=== PATIENT | female | born 1995 | race Caucasian/White ===

== ENCOUNTER → 2018-06-09 20:18 | Observation (INO) ==
[2018-06-09 18:29] LABS: Bilirubin,Urine Negative (Negative); Blood,Urine Negative (Negative); Clarity,Urine Turbid (Clear); Color,Urine Yellow (Yellow); Glucose,Urine (UA) 100 mg/dL (Normal); Ketones,Urine Negative (Negative); Leukocyte Esterase,Urine Small (Negative); Nitrite,Urine Negative (Negative); PH,Urine 7.5 pH Units (5.0-8.0); Protein,Urine Trace mg/dL (Neg-Trace); Specific Gravity,Urine 1.027 (1.010-1.025); Urobilinogen,Urine Normal (Normal)
[2018-06-09 18:32] LABS: Bacteria,Urine Moderate per hpf (None-Few); Hyaline Casts,Urine None Seen per lpf (None-Few); Squamous Epithelial Cell,Urine Many per lpf (None-Few)
[2018-06-09 18:40] LABS: Amphetamine Screen,Urine Negative ng/mL (Cutoff=1000); Barbiturate Screen,Urine Negative ng/mL (Cutoff=200); Benzodiazepines Screen,Urine Negative ng/mL (Cutoff=200); Cannabinoid Screen,Urine Negative ng/mL (Cutoff = 50); Cocaine Screen,Urine Negative ng/mL (Cutoff= 300); Opiate Screen,Urine Negative ng/mL (Cutoff=300); Phencyclidine Screen,Urine Negative ng/mL (Cutoff=25)
[2018-06-09 18:44] LABS: Amorphous Sediment,Urine Moderate (Few)
--- NOTE | 2018-06-09 18:46 | OB/GYN Progress Note ---
Date of Encounter: 06/09/18 Time of Encounter: 18:44 - Assessment and Plan (1) 22 weeks gestation of Current Visit: Yes Status: Acute (2) Cramping affecting , antepartum Current Visit: Yes Status: Acute 1 L LR bolus. Pt states cramping has lessened and contractions have decreased on the monitor. discharged home with labor and when to return to triage precautions. Discussed with Dr. Benjamin. Subjective - Subjective Interval history: 22+1 presents to triage with complaints of cramping since yesterday. Reports movement, but is decreased over the last couple days. Denies vaginal bleeding or leaking of fluid. Pt states she has only had 3 cans of pepsi today, no water, and only drinks minimal water daily. Antepartum ROS: contractions, no loss of fluid, no vaginal bleeding, no movement normal Objective - Vital Signs Vital Signs: Intake and Output 06/09/18 06/09/18 06/09/18 07:59 15:59 23:59 Other: Weight 44.906 kg Patient Weight 06/09/18 23:59 Weight 44.906 kg - Exam FHR: auscultation normal Abdomen: Present: soft, gravid Cervical dilation: Closed internal OS, external 1cm/long/high - Labs Labs: Abnormal lab results Urine Clarity Turbid (Clear) A 06/09/18 18:00 Ur Specific [place] 1.027 (1.010-1.025) H 06/09/18 18:00 Urine Glucose (UA) 100 mg/dL (Normal) H 06/09/18 18:00 Ur Leukocyte Esterase Small (Negative) H 06/09/18 18:00
[~2018-06-09 20:18] MED LIST: Ringers Solution, Lactated 1,000 ML IVC ONE; Ringers Solution, Lactated 1,000 ML IVC SCH; Ringers Solution, Lactated 1,000 ML ONE
== END | disposition home or self-care (01) ==
LOC: 1NENULAB
PROVIDERS: ADMIT Advanced Practice Midwife; ATTEND Advanced Practice Midwife

== ENCOUNTER → 2018-07-13 17:05 | Observation (INO) ==
[2018-07-13 16:31] LABS: Bilirubin,Urine Negative (Negative); Blood,Urine Small (Negative); Clarity,Urine Cloudy (Clear); Color,Urine Yellow (Yellow); Glucose,Urine (UA) Normal (Normal); Ketones,Urine Trace mg/dL (Negative); Leukocyte Esterase,Urine Small (Negative); Nitrite,Urine Negative (Negative); PH,Urine 7.5 pH Units (5.0-8.0); Protein,Urine Negative (Neg-Trace); Specific Gravity,Urine 1.015 (1.010-1.025); Urobilinogen,Urine Normal (Normal)
[2018-07-13 16:37] LABS: Amphetamine Screen,Urine Negative ng/mL (Cutoff=1000); Bacteria,Urine Moderate per hpf (None-Few); Barbiturate Screen,Urine Negative ng/mL (Cutoff=200); Benzodiazepines Screen,Urine Negative ng/mL (Cutoff=200); Cannabinoid Screen,Urine Negative ng/mL (Cutoff = 50); Cocaine Screen,Urine Negative ng/mL (Cutoff= 300); Hyaline Casts,Urine None Seen per lpf (None-Few); Opiate Screen,Urine Negative ng/mL (Cutoff=300); Phencyclidine Screen,Urine Negative ng/mL (Cutoff=25); Squamous Epithelial Cell,Urine Many per lpf (None-Few)
--- NOTE | 2018-07-13 17:01 | OB/GYN Progress Note ---
Date of Encounter: 07/13/18 Time of Encounter: 16:59 - Assessment and Plan (1) 27 weeks gestation of Current Visit: Yes Status: Acute Discharge home with precautions. (2) Suprapubic pressure Current Visit: Yes Status: Acute (3) Lightheadedness Current Visit: Yes Status: Acute Encouraged oral hydration. Return precautions given. Subjective - Subjective Principal diagnosis: Suprapubic pressure Interval history: 22 y/o presenting at 27w0d with c/o of suprapubic pressure that she has had for a few days. She also reports a feeling of lightheadness around 1130 today. Reports she had not eaten or had water to drink for a few hours. Reports after food and water, it had resolved. Denies LOF, Contractions, VB. Reports good FM. Antepartum ROS: new complaints, movement normal, no loss of fluid, no vaginal bleeding, no contractions Objective - Vital Signs Vital Signs: Intake and Output 07/13/18 07/13/18 07/13/18 07:59 15:59 23:59 Other: Weight 48.8 kg Patient Weight 07/13/18 23:59 Weight 48.8 kg - Exam FHR: category 1 FHR comments: FHR baseline 150bpm, reassuring for gestation age. Auscultation: bilateral: normal Abdomen: Present: normal appearance, soft, gravid. Absent: tenderness Cervical dilation: 0 Cervix effacement: thick - Labs Labs: Abnormal lab results Urine Clarity Cloudy (Clear) A 07/13/18 16:22 Urine Ketones Trace mg/dL (Negative) H 07/13/18 16:22 Urine Blood Small (Negative) H 07/13/18 16:22 Ur Leukocyte Esterase Small (Negative) H 07/13/18 16:22 Urine Microscopic RBC 3-5 per hpf (0-3) H 07/13/18 16:22 Urine Microscopic WBC 3-5 per hpf (0-3) H 07/13/18 16:22 Ur Squamous Epith Cells Many per lpf (None-Few) H 07/13/18 16:22 Urine Bacteria Moderate per hpf (None-Few) H 07/13/18 16:22 Ur Culture Indicated? NO. (NO) A 07/13/18 16:22
== END | disposition home or self-care (01) ==
LOC: 1NENULAB
PROVIDERS: ADMIT Registered Nurse; ATTEND Registered Nurse

== ENCOUNTER → 2018-08-05 19:35 | Observation (INO) ==
[2018-08-05 15:07] LABS: Bilirubin,Urine Negative (Negative); Blood,Urine Small (Negative); Clarity,Urine Cloudy (Clear); Color,Urine Dark Yellow (Yellow); Glucose,Urine (UA) Normal (Normal); Ketones,Urine 40 mg/dL (Negative); Leukocyte Esterase,Urine Small (Negative); Nitrite,Urine Negative (Negative); PH,Urine 6.5 pH Units (5.0-8.0); Protein,Urine Negative (Neg-Trace); Specific Gravity,Urine 1.016 (1.010-1.025); Urobilinogen,Urine Normal (Normal)
[2018-08-05 15:11] LABS: Bacteria,Urine Moderate per hpf (None-Few); Squamous Epithelial Cell,Urine Many per lpf (None-Few); WBC,Urine 30-50 per hpf (0-3)
[2018-08-05 15:23] LABS: Renal Epithelial Cells,Urine Few per hpf (None-Few)
[2018-08-05 15:35] LABS: Amphetamine Screen,Urine Negative ng/mL (Cutoff=1000); Barbiturate Screen,Urine Negative ng/mL (Cutoff=200); Benzodiazepines Screen,Urine Negative ng/mL (Cutoff=200); Cannabinoid Screen,Urine Negative ng/mL (Cutoff = 50); Cocaine Screen,Urine Negative ng/mL (Cutoff= 300); Opiate Screen,Urine Negative ng/mL (Cutoff=300); Phencyclidine Screen,Urine Negative ng/mL (Cutoff=25)
--- NOTE | 2018-08-05 15:35 | OB/GYN History & Physical ---
Date of Encounter: 08/05/18 Time of Encounter: 15:29 Assessment and Plan (1) 30 weeks gestation of Current visit: Yes Status: Acute NST reactive, FHR 140 bpm. Fibronectin negative. Fern negative. Vaginosis panel and GC/CT pending. (2) labor Current visit: Yes Status: Acute Dr. Ritter at bedside for US of placenta. Contractions every minute. SVE unchanged after 1 hour. FFN negative. Contractions have continued despite fluid bolus and procardia. Magnesium 4g loading dose followed by 2 grams per hour per Dr. Ritter's orders. Fibrinogen pending. Qualifiers: labor trimester: third trimester Fetus number: single or unspecified fetus Qualified Code(s): O60.14X0 - labor third trimester with delivery third trimester, not applicable or unspecified (3) Tachycardia with heart rate 141-160 beats per minute Current visit: Yes Status: Acute 2 liters of LR given. Continuous pulse ox in place to monitor heart rate. Dr. Ritter aware. History of Present Illness Chief complaint: cramping, nausea HPI: Ms. Garvey is a 23 year old female presenting at 30w2d with c/o cramping, pressure, and nausea. She reports feeling a pop 2 days ago. Denies VB or LOF. Reports good movement. Pt reports nausea began yesterday, but denies vomiting. Reports she "has barely drank any water for days". Denies diarrhea. Denies intercourse x1 week or any falls during this . Denies h/o anxiety or depression prior to this , but has had some anxiety the last few weeks of this . Pt's Mother at and reports that the patient had Afib when she was 13 y/o and was treated for 6 months with medication. Past Med Surg Social Fam HX - Past Medical History Medical history: no medical history Additional medical history: pt states irregular heart rhythm as child, endometriosis Psychiatric history: no psych history - Past Surgical History Additional surgical history: Wrist sx; sx for endometrosis - Social History Smoking Status: Never smoker Smokeless Tobacco Status: No Alcohol use: none Drug use: none - Family History Mother Living Status: Still Living Hx Family Cardiac Disorders: Yes (CHF, Pacemaker, Defiberlator x2, htn) Hx Family Respiratory Disorders: No Hx Family Cancer: No Hx Family GI Disorders: No Hx Family Endocrine Disorder: No Hx Family Neuromuscular Disorders: No Hx Family Neurologic Disorders: No Hx Family HEENT Disorders: No Hx Family Autoimmune Disorders: No Obstetrical History - Pregnancies : 1 Para: 0 Medications and Allergies Tablet 1 tab PO DAILY 06/09/18 [History] Allergy/AdvReac Type Severity Reaction Status Date / Time No Known Allergies Allergy Verified 02/22/18 19:04 Review of System OB All systems PM: reviewed and no additional remarkable complaints except as s tated - Gastrointestinal Gastrointestinal: nausea, no diarrhea, no vomiting - Genitourinary Genitourinary: no dysuria, no vaginal discharge - Psychiatric Psychiatric: anxiety, no depression, no suicidal ideation (Denies anxiety prior to , but reports it began a few weeks ago. ) Exam - Constitutional Constitutional: mild distress, thin - Lungs Respiratory exam: CTAB - Cardiovascular Cardiovascular exam: RRR, +S1, +S2 - Abdomen Abdomen: Present: bowel sounds normal, gravid, non tender - Extremities Extremities exam: normal inspection Deep Tendon Reflex Grade: 2+ Normal - Cervix Dilation: 1 (1.5cm ) Effacement: 50 Station: -2 Results Result Diagrams: 08/05/18 15:20 08/05/18 15:20 Abnormal lab results Urine Clarity Cloudy (Clear) A 08/05/18 14:55 Urine Ketones 40 mg/dL (Negative) H 08/05/18 14:55 Urine Blood Small (Negative) H 08/05/18 14:55 Ur Leukocyte Esterase Small (Negative) H 08/05/18 14:55 Urine Microscopic RBC 5-15 per hpf (0-3) H 08/05/18 14:55 Urine Microscopic WBC 30-50 per hpf (0-3) H 08/05/18 14:55 Ur Squamous Epith Cells Many per lpf (None-Few) H 08/05/18 14:55 Urine Bacteria Moderate per hpf (None-Few) H 08/05/18 14:55 Ur Culture Indicated? NO. (NO) A 08/05/18 14:55 All other labs normal. - VTE Reasons for not Prescribing Prophylaxis: Treatment not Indicated - Low risk for VTE
[2018-08-05 15:46] LABS: Basophils # 0.1 K/mcL (0.0-0.2); Basophils % 0.3 %; Eosinophils # 0.4 K/mcL (0.0-0.6); Eosinophils % 2.5 %; Hemoglobin 11.4 g/dL (11.5-15.4); Immature Granulocytes % 0.4 % (0-4); Lymphocytes # 2.7 K/mcL (0.6-4.6); Lymphocytes % 18.2 %; Mean Corpuscular HGB Conc 33.5 g/dL (31.6-35.5); Mean Corpuscular Hemoglobin 30.5 pg (28.0-33.3); Mean Corpuscular Volume 90.9 fL (83.0-100.0); Mean Platelet Volume 11.2 fL (9.4-12.4); Monocytes # 1.2 K/mcL (0.0-1.3); Monocytes % 7.8 %; Neutrophils # 10.4 K/mcL (1.6-8.9); Platelet Count 289 K/mcL (140-400); Red Blood Count 3.74 M/mcL (3.82-4.97); Red Cell Distribution Width 12.7 % (11.5-14.5); Segmented Neutrophils % 70.8 %
[2018-08-05 16:04] LABS: BUN/Creatinine Ratio 9 (6-26); Blood Urea Nitrogen 3 mg/dL (6-20); Calcium 9.4 mg/dL (8.6-10.3); Carbon Dioxide 23 mEq/L (23-29); Chloride 100 mEq/L (98-107); Glucose 91 mg/dL (70-105); Osmolality,Calculated 276 (280-300); Potassium 3.4 mEq/L (3.5-5.1); Sodium 135 mEq/L (136-145); eGFR For Non-African Americans > 60 (> 60)
[2018-08-05 16:34] LABS: Gardnerella DNA Not Detected (Not Detect); Trichomonas DNA Not Detected (Not Detect)
[2018-08-05 16:35] LABS: Candida DNA Not Detected (Not Detect)
--- NOTE | 2018-08-05 18:41 | OB/GYN Progress Note ---
Date of Encounter: 08/05/18 Time of Encounter: 17:00 - Assessment and Plan (1) 30 weeks gestation of Current Visit: Yes Status: Acute (2) labor Current Visit: Yes Status: Acute We will give patient 4 g loading dose and 2 g an hour betamethasone given will try to get contractions back under control and stopped possible transfer to [facility]. Qualifiers: labor trimester: third trimester Fetus number: single or unspecified fetus Qualified Code(s): O60.14X0 - labor third trimester with delivery third trimester, not applicable or unspecified Subjective - Subjective Interval history: Patient states contractions getting more uncomfortable abdomen getting very tight. Patient's strip is becoming tachysystole questioned her about any abdominal trauma any drugs tonight everything. Magnesium sulfate is being started at this time. Objective - Exam FHR: category 2 FHR comments: heart tones 160s contractions every 1 minute showing signs of tachysystole Abdomen: Present: gravid (firm to palpation), other (Bedside ultrasound performed revealing fetus in vertex presentation active movement noted anterior placenta seen there appeared to be no signs of any retroplacental clot appeared to be intact.) Cervical dilation: 1.5 Cervix effacement: 50 station: -3 - Labs Labs: Abnormal lab results WBC 14.7 K/mcL (4.3-11.1) H 08/05/18 15:20 RBC 3.74 M/mcL (3.82-4.97) L 08/05/18 15:20 Hgb 11.4 g/dL (11.5-15.4) L 08/05/18 15:20 Hct 34.0 % (35.3-44.9) L 08/05/18 15:20 Neutrophils # 10.4 K/mcL (1.6-8.9) H 08/05/18 15:20 Fibrinogen 446 mg/dL (169-393) H 08/05/18 16:55 Sodium 135 mEq/L (136-145) L 08/05/18 15:20 Potassium 3.4 mEq/L (3.5-5.1) L 08/05/18 15:20 BUN 3 mg/dL (6-20) L 08/05/18 15:20 Creatinine 0.32 mg/dL (0.60-1.20) L 08/05/18 15:20 Calculated Osmolality 276 (280-300) L 08/05/18 15:20 Urine Clarity Cloudy (Clear) A 08/05/18 14:55 Urine Ketones 40 mg/dL (Negative) H 08/05/18 14:55 Urine Blood Small (Negative) H 08/05/18 14:55 Ur Leukocyte Esterase Small (Negative) H 08/05/18 14:55 Urine Microscopic RBC 5-15 per hpf (0-3) H 08/05/18 14:55 Urine Microscopic WBC 30-50 per hpf (0-3) H 08/05/18 14:55 Ur Squamous Epith Cells Many per lpf (None-Few) H 08/05/18 14:55 Urine Bacteria Moderate per hpf (None-Few) H 08/05/18 14:55 Ur Culture Indicated? NO. (NO) A 08/05/18 14:55
--- NOTE | 2018-08-05 19:11 | Discharge Summary ---
Date of Encounter: 08/05/18 Time of Encounter: 19:14 - Discharge Diagnosis (1) 30 weeks gestation of Priority: Primary Status: Acute (2) labor Priority: Primary Status: Acute Comments: We will transfer patient to [facility] Qualifiers: labor trimester: third trimester Fetus number: single or unspecified fetus Qualified Code(s): O60.14X0 - labor third trimester with delivery third trimester, not applicable or unspecified - Discharge Medications Home Medications: Tablet 1 tab PO DAILY 06/09/18 [History] Allergies/Adverse Reactions: Allergy/AdvReac Type Severity Reaction Status Date / Time No Known Allergies Allergy Verified 02/22/18 19:04 Data Procedures and tests throughout hospitalization: Laboratory Tests 08/05/18 08/05/18 08/05/18 14:55 14:55 15:20 WBC 14.7 H RBC 3.74 L Hgb 11.4 L Hct 34.0 L MCV 90.9 MCH 30.5 MCHC 33.5 RDW 12.7 Plt Count 289 MPV 11.2 Immature Gran % 0.4 Seg Neutrophils % 70.8 Lymphocytes % 18.2 Monocytes % 7.8 Eosinophils % 2.5 Basophils % 0.3 Neutrophils # 10.4 H Lymphocytes # 2.7 Monocytes # 1.2 Eosinophils # 0.4 Basophils # 0.1 Fibrinogen Sodium Potassium Chloride Carbon Dioxide BUN Creatinine Est GFR ( Amer) Est GFR (Non-Af Amer) BUN/Creatinine Ratio Glucose Calculated Osmolality Calcium Urine Color Dark Yellow Urine Clarity Cloudy A Urine pH 6.5 Ur Specific [place] 1.016 Urine Protein Negative Urine Glucose (UA) Normal Urine Ketones 40 H Urine Blood Small H Urine Nitrite Negative Urine Bilirubin Negative Urine Urobilinogen Normal Ur Leukocyte Esterase Small H Urine Microscopic RBC 5-15 H Urine Microscopic WBC 30-50 H Ur Squamous Epith Cells Many H Ur Renal Epithelial Cell Few Urine Bacteria Moderate H Hyaline Casts Test Not Performed Ur Culture Indicated? NO. A Urine Opiates Screen Negative Ur Barbiturates Screen Negative Ur Phencyclidine Scrn Negative Ur Amphetamines Screen Negative U Benzodiazepines Scrn Negative Urine Cocaine Screen Negative U Marijuana (THC) Screen Negative Ur Drug Screen Interp See Below Cheryl species DNA Chlam trachomat DNA PCR Gardnerella DNA Probe N.gonorrhoeae DNA (PCR) Trichomonas DNA Probe Fibronectin 08/05/18 08/05/18 08/05/18 15:20 15:20 15:20 WBC RBC Hgb Hct MCV MCH MCHC RDW Plt Count MPV Immature Gran % Seg Neutrophils % Lymphocytes % Monocytes % Eosinophils % Basophils % Neutrophils # Lymphocytes # Monocytes # Eosinophils # Basophils # Fibrinogen Sodium 135 L Potassium 3.4 L Chloride 100 Carbon Dioxide 23 BUN 3 L Creatinine 0.32 L Est GFR ( Amer) > 60 Est GFR (Non-Af Amer) > 60 BUN/Creatinine Ratio 9 Glucose 91 Calculated Osmolality 276 L Calcium 9.4 Urine Color Urine Clarity Urine pH Ur Specific [place] Urine Protein Urine Glucose (UA) Urine Ketones Urine Blood Urine Nitrite Urine Bilirubin Urine Urobilinogen Ur Leukocyte Esterase Urine Microscopic RBC Urine Microscopic WBC Ur Squamous Epith Cells Ur Renal Epithelial Cell Urine Bacteria Hyaline Casts Ur Culture Indicated? Urine Opiates Screen Ur Barbiturates Screen Ur Phencyclidine Scrn Ur Amphetamines Screen U Benzodiazepines Scrn Urine Cocaine Screen U Marijuana (THC) Screen Ur Drug Screen Interp Cheryl species DNA Not Detected Chlam trachomat DNA PCR NOT DETECTED Gardnerella DNA Probe Not Detected N.gonorrhoeae DNA (PCR) NOT DETECTED Trichomonas DNA Probe Not Detected Fibronectin 08/05/18 08/05/18 15:20 16:55 WBC RBC Hgb Hct MCV MCH MCHC RDW Plt Count MPV Immature Gran % Seg Neutrophils % Lymphocytes % Monocytes % Eosinophils % Basophils % Neutrophils # Lymphocytes # Monocytes # Eosinophils # Basophils # Fibrinogen 446 H Sodium Potassium Chloride Carbon Dioxide BUN Creatinine Est GFR ( Amer) Est GFR (Non-Af Amer) BUN/Creatinine Ratio Glucose Calculated Osmolality Calcium Urine Color Urine Clarity Urine pH Ur Specific [place] Urine Protein Urine Glucose (UA) Urine Ketones Urine Blood Urine Nitrite Urine Bilirubin Urine Urobilinogen Ur Leukocyte Esterase Urine Microscopic RBC Urine Microscopic WBC Ur Squamous Epith Cells Ur Renal Epithelial Cell Urine Bacteria Hyaline Casts Ur Culture Indicated? Urine Opiates Screen Ur Barbiturates Screen Ur Phencyclidine Scrn Ur Amphetamines Screen U Benzodiazepines Scrn Urine Cocaine Screen U Marijuana (THC) Screen Ur Drug Screen Interp Cheryl species DNA Chlam trachomat DNA PCR [place] DNA Probe N.gonorrhoeae DNA (PCR) Trichomonas DNA Probe Fibronectin Negative Labs on day of discharge: Labs from last 24 hours 08/05/18 08/05/18 08/05/18 16:55 15:20 15:20 WBC RBC Hgb Hct MCV MCH MCHC RDW Plt Count MPV Immature Gran % Seg Neutrophils % Lymphocytes % Monocytes % Eosinophils % Basophils % Neutrophils # Lymphocytes # Monocytes # Eosinophils # Basophils # Fibrinogen 446 H Sodium Potassium Chloride Carbon Dioxide BUN Creatinine Est GFR ( Amer) Est GFR (Non-Af Amer) BUN/Creatinine Ratio Glucose Calculated Osmolality Calcium Urine Color Urine Clarity Urine pH Ur Specific [place] Urine Protein Urine Glucose (UA) Urine Ketones Urine Blood Urine Nitrite Urine Bilirubin Urine Urobilinogen Ur Leukocyte Esterase Urine Microscopic RBC Urine Microscopic WBC Ur Squamous Epith Cells Ur Renal Epithelial Cell Urine Bacteria Hyaline Casts Ur Culture Indicated? Urine Opiates Screen Ur Barbiturates Screen Ur Phencyclidine Scrn Ur Amphetamines Screen U Benzodiazepines Scrn Urine Cocaine Screen U Marijuana (THC) Screen Ur Drug Screen Interp Cheryl species DNA Not Detected Chlam trachomat DNA PCR [place] DNA Probe Not Detected N.gonorrhoeae DNA (PCR) Trichomonas DNA Probe Not Detected Fibronectin Negative 08/05/18 08/05/18 08/05/18 15:20 15:20 15:20 WBC 14.7 H RBC 3.74 L Hgb 11.4 L Hct 34.0 L MCV 90.9 MCH 30.5 MCHC 33.5 RDW 12.7 Plt Count 289 MPV 11.2 Immature Gran % 0.4 Seg Neutrophils % 70.8 Lymphocytes % 18.2 Monocytes % 7.8 Eosinophils % 2.5 Basophils % 0.3 Neutrophils # 10.4 H Lymphocytes # 2.7 Monocytes # 1.2 Eosinophils # 0.4 Basophils # 0.1 Fibrinogen Sodium 135 L Potassium 3.4 L Chloride 100 Carbon Dioxide 23 BUN 3 L Creatinine 0.32 L Est GFR ( Amer) > 60 Est GFR (Non-Af Amer) > 60 BUN/Creatinine Ratio 9 Glucose 91 Calculated Osmolality 276 L Calcium 9.4 Urine Color Urine Clarity Urine pH Ur Specific [place] Urine Protein Urine Glucose (UA) Urine Ketones Urine Blood Urine Nitrite Urine Bilirubin Urine Urobilinogen Ur Leukocyte Esterase Urine Microscopic RBC Urine Microscopic WBC Ur Squamous Epith Cells Ur Renal Epithelial Cell Urine Bacteria Hyaline Casts Ur Culture Indicated? Urine Opiates Screen Ur Barbiturates Screen Ur Phencyclidine Scrn Ur Amphetamines Screen U Benzodiazepines Scrn Urine Cocaine Screen U Marijuana (THC) Screen Ur Drug Screen Interp Cheryl species DNA Chlam trachomat DNA PCR NOT DETECTED Gardnerella DNA Probe N.gonorrhoeae DNA (PCR) NOT DETECTED Trichomonas DNA Probe Fibronectin 08/05/18 08/05/18 14:55 14:55 WBC RBC Hgb Hct MCV MCH MCHC RDW Plt Count MPV Immature Gran % Seg Neutrophils % Lymphocytes % Monocytes % Eosinophils % Basophils % Neutrophils # Lymphocytes # Monocytes # Eosinophils # Basophils # Fibrinogen Sodium Potassium Chloride Carbon Dioxide BUN Creatinine Est GFR ( Amer) Est GFR (Non-Af Amer) BUN/Creatinine Ratio Glucose Calculated Osmolality Calcium Urine Color Dark Yellow Urine Clarity Cloudy A Urine pH 6.5 Ur Specific [place] 1.016 Urine Protein Negative Urine Glucose (UA) Normal Urine Ketones 40 H Urine Blood Small H Urine Nitrite Negative Urine Bilirubin Negative Urine Urobilinogen Normal Ur Leukocyte Esterase Small H Urine Microscopic RBC 5-15 H Urine Microscopic WBC 30-50 H Ur Squamous Epith Cells Many H Ur Renal Epithelial Cell Few Urine Bacteria Moderate H Hyaline Casts Test Not Performed Ur Culture Indicated? NO. A Urine Opiates Screen Negative Ur Barbiturates Screen Negative Ur Phencyclidine Scrn Negative Ur Amphetamines Screen Negative U Benzodiazepines Scrn Negative Urine Cocaine Screen Negative U Marijuana (THC) Screen Negative Ur Drug Screen Interp See Below Cheryl species DNA Chlam trachomat DNA PCR [place]rella DNA Probe N.[email or web address] DNA (PCR) Trichomonas DNA Probe Fibronectin Date of admission: 08/05/18 14:25 Primary care physician: Barbara Cintron, Discharging clinician: Hollis Ritter Anticipated date of discharge: 08/05/18 - Patient Status Disposition: Transfer Other Condition: Fair Functional capacity at discharge: bed bound Overall status at discharge: patient is not back to baseline - Discharge Instructions Follow Up With: Barbara Cintron CNP [Primary Care Provider] - Janine Ramos CNM [Non-Partnered Physician] - - Diet and Activity Activity: other Diet: diabetic diet Hospital Course COAL [facility]ER Reason for admission: other (Intrauterine at 30-2/7 weeks labor) Discharge diagnosis: other (Same with transfer to [facility]) Hospital course: Patient is a 23-year-old 1 para 0 at 30-2/7 weeks who presented to labor and delivery with the complaints of flulike symptoms nausea just not feeling well on assessment patient was noted to be conchita every 2 minutes patient was dehydrated was given an IV bolus patient was tachycardic so we cannot use any terbutaline she did receive 1 dose of Procardia 10 mg did not do anything for her patient subsequently was started on magnesium sulfate milligram loading dose 4 x 2 g an hour due to tachysystole that developed we did rule out an abruption lab work did not confirm any pressure needed a bedside ultrasound. Patient's contractions continued to be present having difficulty getting the stop and due to her gestational age was decided patient would be best transferred to a tertiary care center. Case was discussed with maternal medicine fellow on-call who is except of the transfer. She will be transferred by EMS on magnesium sulfate. Patient did receive 1 dose of [place] on admission. Patient condition at time of transfer was stable. Time Attestation: Total time spent providing and/or coordinating discharge services: Exam - Constitutional General appearance IM: mild distress, A&O X 3 - Respiratory Respiratory exam: Present: CTAB - Cardiovascular Cardiovascular exam IM: Present: RRR - GI/Abdominal GI/Abdominal exam IM: normal bowel sounds - Uterine Tone: Firm ( heart tones 150s and reassuring contractions still every 2-4 minutes becoming more irregular) - VTE Reasons for not Prescribing Prophylaxis: Treatment not Indicated - Low risk for VTE
[~2018-08-05 19:35] MED LIST changes: +Betamethasone Acet/SodPhos 6 MG/ML MDV IM SCH; +Magnesium Sulfate 20 gm/500mL 20 GM/500 ML IV.SOLN IVC SCH; +NIFEdipine 10 MG CAPSULE PO ONE; +Ondansetron 4 MG/2 ML VIAL IVP ONE; -Ringers Solution, Lactated 1,000 ML IVC SCH
== END | disposition other institution (70) ==
LOC: 1NENULAB
PROVIDERS: ADMIT Registered Nurse; ATTEND Registered Nurse

== ENCOUNTER 2019-07-16 14:55 | Observation (INO) ==
[2019-07-16] MEDS ORDERED: FLU Vac QV 19-20 (6Month+)/PF 0.5 ML SYRINGE IM ONE (15:24)
[2019-07-16 15:42] LABS: Bilirubin,Urine Negative (Negative); Blood,Urine Negative (Negative); Clarity,Urine Clear (Clear); Color,Urine Yellow (Yellow); Glucose,Urine (UA) Normal (Normal); Ketones,Urine Negative (Negative); Leukocyte Esterase,Urine Small (Negative); Nitrite,Urine Negative (Negative); Protein,Urine Trace mg/dL (Neg-Trace); Specific Gravity,Urine 1.019 (1.010-1.025); Urobilinogen,Urine Normal (Normal)
[2019-07-16 15:53] LABS: Amphetamine Screen,Urine Negative ng/mL (Cutoff=1000); Barbiturate Screen,Urine Negative ng/mL (Cutoff=200); Benzodiazepines Screen,Urine Negative ng/mL (Cutoff=200); Cannabinoid Screen,Urine Negative ng/mL (Cutoff = 50); Cocaine Screen,Urine Negative ng/mL (Cutoff= 300); Opiate Screen,Urine Negative ng/mL (Cutoff=300); Phencyclidine Screen,Urine Negative ng/mL (Cutoff=25)
[2019-07-16 15:58] LABS: Squamous Epithelial Cell,Urine Few per lpf (None-Few)
[2019-07-16 15:59] LABS: Bacteria,Urine Few per hpf (None-Few); Mucus,Urine Few (Few)
[2019-07-16 16:39] LABS: Candida DNA DETECTED (Not Detect); Gardnerella DNA Not Detected (Not Detect); Trichomonas DNA Not Detected (Not Detect)
== END 2019-07-16 17:05 | disposition home or self-care (01) ==
LOC: 1NENULAB
PROVIDERS: ADMIT Advanced Practice Midwife; ATTEND Advanced Practice Midwife

== ENCOUNTER → 2019-08-03 07:18 | Observation (INO) ==
[2019-08-02 21:58] LABS: Bilirubin,Urine Negative (Negative); Blood,Urine Negative (Negative); Clarity,Urine Cloudy (Clear); Color,Urine Yellow (Yellow); Glucose,Urine (UA) Normal (Normal); Ketones,Urine Negative (Negative); Leukocyte Esterase,Urine Small (Negative); Nitrite,Urine Negative (Negative); PH,Urine 6.5 pH Units (5.0-8.0); Protein,Urine Trace mg/dL (Neg-Trace); Specific Gravity,Urine 1.021 (1.010-1.025); Urobilinogen,Urine Normal (Normal)
[2019-08-02 22:00] LABS: Bacteria,Urine Few per hpf (None-Few); Hyaline Casts,Urine Few per lpf (None-Few); Squamous Epithelial Cell,Urine Many per lpf (None-Few); WBC,Urine 15-30 per hpf (0-3)
[2019-08-02 22:09] LABS: Amphetamine Screen,Urine Negative ng/mL (Cutoff=1000); Barbiturate Screen,Urine Negative ng/mL (Cutoff=200); Benzodiazepines Screen,Urine Negative ng/mL (Cutoff=200); Cannabinoid Screen,Urine Negative ng/mL (Cutoff = 50); Cocaine Screen,Urine Negative ng/mL (Cutoff= 300); Opiate Screen,Urine Negative ng/mL (Cutoff=300); Phencyclidine Screen,Urine Negative ng/mL (Cutoff=25)
[2019-08-02 23:24] LABS: Candida DNA DETECTED (Not Detect); Gardnerella DNA Not Detected (Not Detect); Trichomonas DNA Not Detected (Not Detect)
[~2019-08-03 07:18] MED LIST changes: +0.9 % Sodium Chloride 1,000 ML IVC ONE; +0.9 % Sodium Chloride 1,000 ML IVC SCH; -Betamethasone Acet/SodPhos 6 MG/ML MDV IM SCH; -Magnesium Sulfate 20 gm/500mL 20 GM/500 ML IV.SOLN IVC SCH; -NIFEdipine 10 MG CAPSULE PO ONE; -Ondansetron 4 MG/2 ML VIAL IVP ONE; -Ringers Solution, Lactated 1,000 ML IVC ONE; -Ringers Solution, Lactated 1,000 ML ONE; +Terbutaline 1 MG/ML VIAL SQ ONE; +Terconazole Vag CRM 20 GM TUBE VG SCH
== END | disposition home or self-care (01) ==
LOC: 1NENULAB
PROVIDERS: ADMIT Registered Nurse; ATTEND Registered Nurse

== ENCOUNTER → 2019-08-12 21:55 | Observation (INO) ==
[2019-08-12 20:10] LABS: Bilirubin,Urine Negative (Negative); Blood,Urine Negative (Negative); Clarity,Urine Cloudy (Clear); Color,Urine Yellow (Yellow); Glucose,Urine (UA) Normal (Normal); Ketones,Urine 80 mg/dL (Negative); Leukocyte Esterase,Urine Small (Negative); Nitrite,Urine Negative (Negative); Protein,Urine Negative (Neg-Trace); Specific Gravity,Urine 1.018 (1.010-1.025); Urobilinogen,Urine Normal (Normal)
[2019-08-12 20:13] LABS: Bacteria,Urine Few per hpf (None-Few); Hyaline Casts,Urine None Seen per lpf (None-Few); RBC,Urine 0-3 per hpf (0-3); Squamous Epithelial Cell,Urine Many per lpf (None-Few)
[2019-08-12 20:19] LABS: Amphetamine Screen,Urine Negative ng/mL (Cutoff=1000); Barbiturate Screen,Urine Negative ng/mL (Cutoff=200); Benzodiazepines Screen,Urine Negative ng/mL (Cutoff=200); Cannabinoid Screen,Urine Negative ng/mL (Cutoff = 50); Cocaine Screen,Urine Negative ng/mL (Cutoff= 300); Opiate Screen,Urine Negative ng/mL (Cutoff=300); Phencyclidine Screen,Urine Negative ng/mL (Cutoff=25)
[~2019-08-12 21:55] MED LIST changes: -0.9 % Sodium Chloride 1,000 ML IVC SCH; +Ampicillin 2 GM in 0.9 % Sodium Chloride Mini Bag 100 ML IVPB ONE; +Betamethasone Acet/SodPhos 30 MG/5 ML VIAL IM SCH; +Magnesium Sulfate 20 gm/500mL 20 GM/500 ML IV.SOLN IVC SCH; -Terbutaline 1 MG/ML VIAL SQ ONE; -Terconazole Vag CRM 20 GM TUBE VG SCH; +ceFAZolin 1,000 MG in Water for inj. (sterile) 10 ML IVP SCH
== END | disposition other institution (70) ==
LOC: 1NENULAB
PROVIDERS: ADMIT Registered Nurse; ATTEND Registered Nurse

== ENCOUNTER 2019-09-05 11:50 | Inpatient (IN) ==
[2019-09-05 12:46] LABS: Bilirubin,Urine Negative (Negative); Blood,Urine Negative (Negative); Clarity,Urine Cloudy (Clear); Color,Urine Yellow (Yellow); Glucose,Urine (UA) Normal (Normal); Ketones,Urine 15 mg/dL (Negative); Leukocyte Esterase,Urine Small (Negative); Nitrite,Urine Negative (Negative); Protein,Urine Negative (Neg-Trace); Specific Gravity,Urine 1.008 (1.010-1.025); Urobilinogen,Urine Normal (Normal)
[2019-09-05 12:52] LABS: Bacteria,Urine Few per hpf (None-Few); Hyaline Casts,Urine None Seen per lpf (None-Few); RBC,Urine 0-3 per hpf (0-3); Squamous Epithelial Cell,Urine Many per lpf (None-Few); WBC,Urine 15-30 per hpf (0-3)
[2019-09-05 13:00] LABS: Amphetamine Screen,Urine Negative ng/mL (Cutoff=1000); Barbiturate Screen,Urine Negative ng/mL (Cutoff=200); Benzodiazepines Screen,Urine Negative ng/mL (Cutoff=200); Cannabinoid Screen,Urine Negative ng/mL (Cutoff = 50); Cocaine Screen,Urine Negative ng/mL (Cutoff= 300); Opiate Screen,Urine Negative ng/mL (Cutoff=300); Phencyclidine Screen,Urine Negative ng/mL (Cutoff=25)
[2019-09-05 13:02] LABS: Amorphous Sediment,Urine Few (Few)
[2019-09-05] MEDS ORDERED: Ringers Solution, Lactated 1,000 ML ONE (13:09)
[2019-09-05] MEDS ORDERED: Ringers Solution, Lactated 1,000 ML IVC ONE (13:15)
[2019-09-05 13:57] LABS: Basophils # 0.1 K/mcL (0.0-0.2); Basophils % 0.4 %; Eosinophils # 0.3 K/mcL (0.0-0.6); Eosinophils % 1.9 %; Hematocrit 30.9 % (35.3-44.9); Hemoglobin 9.6 g/dL (11.5-15.4); Immature Granulocytes % 0.9 % (0-4); Lymphocytes # 2.5 K/mcL (0.6-4.6); Lymphocytes % 18.8 %; Mean Corpuscular HGB Conc 31.1 g/dL (31.6-35.5); Mean Corpuscular Volume 83.7 fL (83.0-100.0); Mean Platelet Volume 11.3 fL (9.4-12.4); Monocytes % 7.6 %; Neutrophils # 9.4 K/mcL (1.6-8.9); Platelet Count 387 K/mcL (140-400); Red Blood Count 3.69 M/mcL (3.82-4.97); Red Cell Distribution Width 20.8 % (11.5-14.5); Segmented Neutrophils % 70.4 %; White Blood Count 13.4 K/mcL (4.3-11.1)
[2019-09-05 14:16] LABS: Alanine Aminotransferase 5 Units/L (7-52); Albumin 3.8 g/dL (3.5-5.7); Albumin/Globulin Ratio 1.2 (1.1-2.2); Alkaline Phosphatase 92 Units/L (34-104); Aspartate Amino Transferase 10 Units/L (13-39); BUN/Creatinine Ratio 17 (6-26); Bilirubin,Total 0.6 mg/dL (0.3-1.0); Blood Urea Nitrogen 4 mg/dL (6-20); Calcium 8.8 mg/dL (8.6-10.3); Carbon Dioxide 22 mEq/L (23-29); Chloride 99 mEq/L (98-107); Globulin 3.2 g/dL (2.4-3.5); Glucose 95 mg/dL (70-105); Osmolality,Calculated 277 (280-300); Potassium 3.7 mEq/L (3.5-5.1); Sodium 135 mEq/L (136-145); eGFR For African Americans > 60 (> 60); eGFR For Non-African Americans > 60 (> 60)
[2019-09-05] MEDS ORDERED: Metoclopramide 10 MG/2 ML VIAL IVP PRN (14:33)
[2019-09-05] MEDS ORDERED: Ondansetron 4 MG/2 ML VIAL IVP PRN (14:33)
[2019-09-05] MEDS ORDERED: Lidocaine 1% 20 ML MDV INFILT PRN (14:33)
[2019-09-05] MEDS ORDERED: Famotidine 20 MG/2 ML VIAL IVP PRN (14:33)
[2019-09-05] MEDS ORDERED: *HR* Nalbuphine 10 MG/ML AMPUL IVP PRN (14:33)
[2019-09-05] MEDS ORDERED: Naloxone 0.4 MG/ML INJ IVP PRN (14:33)
[2019-09-05] MEDS ORDERED: Ringers Solution, Lactated 1,000 ML IVC SCH (14:45)
[2019-09-05] MEDS ORDERED: Clindamycin 900 MG/50 ML 900 MG/50 ML IV.SOLN IVPB SCH ×2 (15:16→15:30)
[2019-09-05] MEDS ORDERED: Oxytocin 20 units/ LR 1000 mL 20 UNIT/1,000 ML BAG IVC ONE (19:42)
[2019-09-05] MEDS ORDERED: Ibuprofen 600 MG TABLET PO ONE (22:39)
[2019-09-06] MEDS ORDERED: Benzocaine/Menthol 56 GM AEROSOL SPRAY TP PRN (00:31)
[2019-09-06] MEDS ORDERED: Acetaminophen 325 MG TABLET PO PRN (00:31)
[2019-09-06] MEDS ORDERED: Lanolin 7 G OINT...G. TP PRN (00:31)
[2019-09-06] MEDS ORDERED: Oxytocin 20 units/ LR 1000 mL 20 UNIT/1,000 ML BAG IVC SCH (00:31)
[2019-09-06 07:16] LABS: Blood Urea Nitrogen < 2 mg/dL (6-20); Carbon Dioxide 26 mEq/L (23-29); Chloride 101 mEq/L (98-107); Potassium 3.7 mEq/L (3.5-5.1); Sodium 137 mEq/L (136-145); eGFR For African Americans > 60 (> 60)
[2019-09-06 07:17] LABS: Alanine Aminotransferase 5 Units/L (7-52); Albumin 3.4 g/dL (3.5-5.7); Albumin/Globulin Ratio 1.2 (1.1-2.2); Alkaline Phosphatase 93 Units/L (34-104); Aspartate Amino Transferase 18 Units/L (13-39); Bilirubin,Total 0.6 mg/dL (0.3-1.0); Calcium 8.9 mg/dL (8.6-10.3); Globulin 2.8 g/dL (2.4-3.5); Glucose 126 mg/dL (70-105); Total Protein 6.2 g/dL (6.4-8.9); eGFR For Non-African Americans > 60 (> 60)
[2019-09-06] MEDS ORDERED: Prenatal Vit/FA 1 EACH TABLET PO SCH (09:00)
[2019-09-06] MEDS: Ibuprofen 600 MG TABLET PO PRN ×2 (09:09→19:30)
[2019-09-06 16:14] VITALS: BP 126/86
== END 2019-09-06 12:56 | disposition home or self-care (01) | DRG 560 ==
LOC: 1NENULAB → OBSVTOIN 11:50 → 1NENULAB 14:41 → 1NENUOBS 09-06 00:21
PROVIDERS: ADMIT Advanced Practice Midwife; ATTEND Advanced Practice Midwife